=== PATIENT | female | born 1960 | race Caucasian/White ===

== ENCOUNTER 2022-10-09 08:38 | Emergency (ER) | payer BC ==
[2022-10-09] MEDS ORDERED: Ondansetron 4 MG/2 ML SDV IVPUSH ONE (09:16)
[2022-10-09] MEDS ORDERED: Sodium Chloride 0.9% 10 ML Syringe FLUSH PRN (09:17)
[2022-10-09] MEDS ORDERED: Sodium Chloride 0.9% 1,000 ML IV SCH ×2 (09:30→10:00)
[2022-10-09] MEDS ORDERED: Potassium Chloride Riders 10 MEQ in Premix Bag 1 BAG IV ONE (10:26)
[2022-10-09 10:38] LABS: CORONAVIRUS COVID-19 NAA NEGATIVE (NEGATIVE)
[2022-10-09] MEDS ORDERED: Potassium Chloride Riders 50 ML ONE (10:40)
[2022-10-09] MEDS ORDERED: Ondansetron 4 MG Tab.DIS ONE (12:00)
== END 2022-10-09 13:00 | disposition home or self-care (01) ==
LOC: LB.ED 08:38
DX: E86.0 Dehydration (principal); E83.42 Hypomagnesemia; E87.6 Hypokalemia; J00 Acute nasopharyngitis [common cold]; Z72.0 Tobacco use; Z20.822 Contact with and (suspected) exposure to COVID-19
CPT/HCPCS: 0241U; 36415; 80048; 83735; 84100; 85027; 96365; 96367; 96375; 99283; 99284-25; J2405; J3475; J3480; J7030; Q0162

== ENCOUNTER 2024-09-27 08:32 | Day surgery (SDC) | payer BC ==
[~2024-09-27 08:32] MED LIST: Metoclopramide 10 MG/2 ML SDV IV PRN
[2024-09-27] MEDS: Sodium Chloride 0.9% 1,000 ML IV SCH (09:00)
[2024-09-27] MEDS ORDERED: Propofol 200 MG/20 ML SDV ONE (10:00)
== END 2024-09-27 11:20 | disposition home or self-care (01) ==
LOC: LB.SDS 08:32
PROVIDERS: ATTEND Surgery
DX: Z12.11 Encounter for screening for malignant neoplasm of colon (principal); R19.5 Other fecal abnormalities; D12.5 Benign neoplasm of sigmoid colon; K62.1 Rectal polyp; E03.9 Hypothyroidism, unspecified; E78.5 Hyperlipidemia, unspecified; Z80.0 Family history of malignant neoplasm of digestive organs
CPT/HCPCS: J2704; J7030